=== PATIENT | female | born 1995 | race Caucasian/White ===

== ENCOUNTER 2018-10-07 13:00 | Inpatient (IN) ==
[2018-10-07 13:11] VITALS: BMI 46.3
[2018-10-07 13:43] LABS: BILIRUBIN,URINE NEGATIVE (NEGATIVE); BLOOD/HEMOGLOBIN,URINE NEGATIVE (NEGATIVE); GLUCOSE, URINE NEGATIVE (NEGATIVE); KETONES,URINE NEGATIVE (NEGATIVE); LEUKOCYTE ESTERASE ,URINE 1+ (NEGATIVE); NITRITES,URINE NEGATIVE (NEGATIVE); PROTEIN,URINE 1+ (NEGATIVE); UROBILINOGEN,URINE NORMAL (NORMAL)
[2018-10-07 13:48] LABS: AMNISURE ROM TEST THERE IS A RUPTURE (NO RUPTURE); APPEARANCE,URINE CLEAR (CLEAR); COLOR,URINE YELLOW (YELLOW)
[2018-10-07 13:50] LABS: BACTERIA,URINE TRACE /HPF (NEGATIVE); RBC,URINE 0-2 /HPF (NONE SEEN); SQUAMOUS EPITHELIAL CELL,UR MODERATE /HPF (NEGATIVE)
[2018-10-07] MEDS ORDERED: D5LR 1L W PITOCIN 10 UNITS/L 10 UNITS/1,000 ML BAG IV PRN (14:38)
[2018-10-07] MEDS ORDERED: NUBAIN INJ 200 MG VIAL MULTIDOSE IVP PRN (14:38)
[2018-10-07] MEDS ORDERED: D5 1/2 NS 1000 ML 1,000 ML IV SCH (15:00)
[2018-10-07 15:03] LABS: BASOPHILS # (AUTO) 0.1 X10^3/uL (0.0-0.1); BASOPHILS % (AUTO) 0.4 % (0.2-1.0); EOSINOPHILS # (AUTO) 0.2 x10^3/uL (0.0-0.2); EOSINOPHILS % (AUTO) 1.2 % (0.9-2.9); HEMATOCRIT 34.6 % (36.0-47.0); HEMOGLOBIN 11.4 g/dL (12.0-16.0); LYMPHOCYTES # (AUTO) 1.8 X10^3/uL (1.3-2.9); MEAN CORPUSCULAR HEMOGLOBIN 26.2 pg (27.0-34.0); MEAN CORPUSCULAR HGB CONC 32.9 g/dL (33.0-35.0); MEAN CORPUSCULAR VOLUME 79.7 fL (80.0-100.0); MEAN PLATELET VOLUME 9.7 fL (7.4-11.0); MONOCYTES # (AUTO) 0.8 x10^3/uL (0.3-0.8); MONOCYTES % (AUTO) 5.6 % (0.0-13.0); NEUTROPHILS # (AUTO) 11.2 x10^3/uL (2.2-4.8); NEUTROPHILS % (AUTO) 79.8 % (42.0-75.0); PLATELET COUNT 270 X10^3/uL (150.0-450.0); RED BLOOD COUNT 4.35 X10^6/uL (3.5-5.4); RED CELL DISTRIBUTION WIDTH 15.5 % (11.6-16.5)
[2018-10-07 15:11] LABS: BLOOD UREA NITROGEN 8 mg/dL (7-18); CALCIUM 8.4 mg/dL (8.5-10.1); CARBON DIOXIDE 21.8 mmol/L (21-32); CHLORIDE 103 mmol/L (98-107); CREATININE 0.58 mg/dL (0.55-1.02); SODIUM 139 mmol/L (136-145); eGFR NON BLACK RACES > 60 (>60)
[2018-10-07] MEDS ORDERED: NAROPIN EPIDURAL 0.2% + FENTANYL 90MCG 60 ML EPI ONE ×2 (16:09→21:59)
[2018-10-07] MEDS ORDERED: ADRENALINE CHL INJ ONE (16:09)
[2018-10-07] MEDS ORDERED: XYLOCAINE 1 % (PLAIN) ONE (16:09)
[2018-10-07] MEDS ORDERED: XYLOCAINE-MPF 1% ONE (16:09)
[2018-10-07] MEDS ORDERED: PITOCIN ONE (16:09)
[2018-10-07] MEDS ORDERED: LR 1000 ML IV 1,000 ML IV ONE (16:10)
[2018-10-07] MEDS ORDERED: FENTANYL INJ 100 mcg ONE (16:11)
[2018-10-07] MEDS ORDERED: REGLAN INJ 10 MG VIAL IVP PRN (17:58)
[2018-10-07] MEDS ORDERED: NS 1000 ML 1,000 ML ONE (18:52)
[2018-10-08] MEDS ORDERED: D5LR 1L W PITOCIN 10 UNITS/L 10 UNITS/1,000 ML BAG IV ONE (03:41)
[2018-10-08] MEDS ORDERED: NAROPIN EPIDURAL 0.2% + FENTANYL 90MCG 60 ML EPI ONE (03:41)
[2018-10-08] MEDS: PITOCIN IVP ONE ×2 (05:08→06:07)
[2018-10-08] MEDS: D5 1/2 NS 1L W PITOCIN 20 UNITS/L 20 UNITS/1,000 ML BAG IV ONE ×2 (05:08→06:07)
[2018-10-08] MEDS ORDERED: MOTRIN TAB 800 MG PO PRN (05:32)
[2018-10-08] MEDS ORDERED: D5 1/2 NS 1000 ML 1,000 ML with PITOCIN 20 UNITS IV SCH ×2 (06:00)
[2018-10-08] MEDS ORDERED: HYPERRHO S/D (or RHOGAM) IM PRN (06:15)
[2018-10-08] MEDS ORDERED: MILK OF MAGNESIA PO PRN (06:15)
[2018-10-08] MEDS ORDERED: DERMOPLAST SPRAY TOP PRN (06:15)
[2018-10-08] MEDS ORDERED: AMBIEN PO PRN (06:15)
[2018-10-08] MEDS: ZANTAC PO SCH ×2 (09:57→21:33)
[2018-10-08] MEDS: PRENATAL PLUS PO SCH (09:57)
[2018-10-09 05:22] LABS: HEMOGLOBIN 10.2 g/dL (12.0-16.0)
[2018-10-09] MEDS: ZANTAC PO SCH ×2 (09:22→20:57)
[2018-10-09] MEDS: PRENATAL PLUS PO SCH (09:22)
[2018-10-09] MEDS ORDERED: ADACEL or BOOSTRIX TDaP VACCINE IM ONE (21:34)
[2018-10-10] MEDS ORDERED: ADACEL or BOOSTRIX TDaP VACCINE IM ONE (05:13)
[2018-10-10] MEDS: PRENATAL PLUS PO SCH (08:37)
[2018-10-10] MEDS: ZANTAC PO SCH (08:38)
[2018-10-10 10:59] VITALS: BP 112/55
== END 2018-10-10 11:20 | disposition home or self-care (01) | DRG 806 ==
LOC: ER 13:00 → LD 14:39 → MED/SURG 10-08 06:53
PROVIDERS: ADMIT Specialist; ATTEND Obstetrics & Gynecology Obstetrics
DX: Z37.0 Single live birth; O75.89 Other specified complications of labor and delivery; O36.0930 Maternal care for other rhesus isoimmunization, third trimester, not applicable or unspecified; O71.82 Other specified trauma to perineum and vulva; Z3A.38 38 weeks gestation of pregnancy; O70.0 First degree perineal laceration during delivery
CPT/HCPCS: 36415; 59409; 80048; 81001; 84112; 85014; 85018; 85025; 86592; 86850; 86900; 86901; 90715; 99284; A4216; S0197; J0171; J2590; J2765; J3010; J7030; J7120; S5010

== ENCOUNTER 2023-06-29 07:30 | Inpatient (IN) ==
[2023-07-01] MEDS ORDERED: ANCEF VIAL 1 GRAM ONE (07:21)
[2023-07-01] MEDS ORDERED: NS 100 ML IV 100 ML ONE (07:22)
[2023-07-01] MEDS ORDERED: LR 1,000 ML IV 1,000 ML IV ONE (07:22)
[2023-07-01] MEDS ORDERED: D5 1/2 NS 1,000 ML 1,000 ML IV SCH (07:35)
[2023-07-01] MEDS ORDERED: ANCEF VIAL 1 GRAM IVP ONE (07:35)
[2023-07-01] MEDS ORDERED: DIPRIVAN VIAL 20 ML ONE (08:08)
[2023-07-01] MEDS ORDERED: REGLAN INJ 10 MG VIAL ONE (08:09)
[2023-07-01] MEDS ORDERED: PITOCIN ONE (08:09)
[2023-07-01] MEDS ORDERED: ZOFRAN INJ 4 MG VIAL ONE (08:09)
[2023-07-01] MEDS ORDERED: EPHEDRINE SULFATE INJ ONE (08:09)
[2023-07-01] MEDS ORDERED: PEPCID 20 MG VIAL ONE (08:09)
[2023-07-01] MEDS ORDERED: MARCAINE SPINAL ONE (08:21)
[2023-07-01] MEDS ORDERED: DILAUDID INJ ONE (08:21)
[2023-07-01] MEDS ORDERED: NS 1,000 ML IV 1,000 ML ONE (08:46)
[2023-07-01] MEDS ORDERED: D5 1/2 NS 1,000 mL + PITOCIN 20 UNITS/L IV 20 UNITS/1,000 ML BAG IV ONE (08:46)
[2023-07-01] MEDS ORDERED: BENADRYL INJ 50 MG VIAL IVP PRN ×2 (11:14→11:35)
[2023-07-01] MEDS ORDERED: BARHEMSYS INJ IVP PRN (11:14)
[2023-07-01] MEDS ORDERED: REGLAN INJ 10 MG VIAL IVP PRN ×2 (11:14→11:35)
[2023-07-01] MEDS ORDERED: ZOFRAN INJ 4 MG VIAL IVP PRN ×2 (11:14→11:35)
[2023-07-01] MEDS ORDERED: NARCAN INJ IVP PRN (11:35)
[2023-07-01] MEDS ORDERED: PERCOCET TAB 5/325 MG PO PRN (11:35)
[2023-07-01] MEDS ORDERED: HYPERRHO S/D (or RHOGAM) IM PRN (11:35)
[2023-07-01] MEDS ORDERED: ADACEL or BOOSTRIX TDaP VACCINE IM ONE (11:35)
[2023-07-01] MEDS ORDERED: D5 1/2 NS 1,000 ML 1,000 ML with PITOCIN 20 UNITS IV SCH ×2 (12:00)
[2023-07-01] MEDS ORDERED: PHENERGAN INJ 25 MG IM ONE (13:50)
[2023-07-01] MEDS: PHENERGAN INJ 25 MG IM PRN ×2 (14:12→18:31)
[2023-07-01] MEDS: TORADOL 30 MG VIAL IVP PRN ×2 (17:05→17:40)
[2023-07-02 04:59] LABS: HEMATOCRIT 24.8 % (36.0-47.0)
[2023-07-02 05:00] LABS: HEMOGLOBIN 8.2 g/dL (12.0-16.0)
[2023-07-02] MEDS: TORADOL 30 MG VIAL IVP PRN (05:41)
--- NOTE | 2023-07-02 07:12 | NOTE.PROBC ---
Progress Note OB-C/S - Subjective Data Subjective: No complaints, decreased lochia. Tolerating oral diet. No N/V. Ambulating well. Titus draining well. Pain under good control with toradol. - Objective Data Temperature: 98.5 F Pulse Rate: 94 Respiratory Rate: 18 Blood Pressure: 103/56 O2 Sat by Pulse Oximetry: 98 Result Diagrams: 07/02/23 04:30 Objective Data: CV= RRR no MRG Lungs=CTA Bilaterally Abd=(+) BS, soft, ND, slightly tender at umblicus level. Bandage removed. Incision clean/dry/intact, no erythema, no bleeding, no discharge. Dermabond/Stitches intact. Fundus firm/NT/ at 1 cm below umbilicus. Ext= No edema, NT, No Cords. Graduated Compression Stockings/Sequential Compression Devices Bilaterally. - Assessment Assessment: POD1 C section - Plan Plan: Remove titus, Encourage shower and wound care, Encourage ambulation, PO pain control, d/c IV pain meds, d/c IV fluids, Increase diet as tolerated. Iron supplementation at discharge. Glucose check at 6 wks pp, IUD at 6 wks pp, BF and bottle feeding. Possible discharge tomorrow.
[2023-07-02] MEDS ORDERED: PERCOCET TAB 5/325 MG PO PRN (07:42)
[2023-07-02] MEDS: PRENATAL PLUS PO SCH (08:30)
[2023-07-02] MEDS: COLACE CAP 100 MG PO SCH ×2 (08:30→20:24)
[2023-07-02] MEDS: BACTROBAN TOPICAL OINT TOP SCH ×2 (15:47→21:14)
[2023-07-02] MEDS ORDERED: FERROUS GLUCONATE PO ONE (15:48)
[2023-07-02] MEDS: FERROUS GLUCONATE PO SCH (17:36)
[2023-07-02] MEDS: MOTRIN TAB 800 MG PO PRN (20:25)
[2023-07-02] MEDS: MYLICON TAB 80 MG CHEW PO PRN (20:25)
[2023-07-03] MEDS: MYLICON TAB 80 MG CHEW PO PRN (05:44)
[2023-07-03] MEDS: MOTRIN TAB 800 MG PO PRN (05:51)
[2023-07-03] MEDS: BACTROBAN TOPICAL OINT TOP SCH (05:51)
[2023-07-03] MEDS: FERROUS GLUCONATE PO SCH (06:00)
[2023-07-03 06:54] VITALS: RESP 18
[2023-07-03] MEDS: COLACE CAP 100 MG PO SCH (08:19)
[2023-07-03] MEDS: PRENATAL PLUS PO SCH (08:46)
[2023-07-03 08:51] VITALS: BP 109/59; PULSE 100; TEMP 98.6; O2SAT 98
== END 2023-07-03 12:00 | disposition home or self-care (01) | DRG 787 ==
LOC: LD 07-01 06:51 → MED/SURG 07-01 11:34
PROVIDERS: ADMIT Specialist; ATTEND Specialist
DX: Z3A.39 39 weeks gestation of pregnancy; O36.63X0 Maternal care for excessive fetal growth, third trimester, not applicable or unspecified; O24.410 Gestational diabetes mellitus in pregnancy, diet controlled; Z37.0 Single live birth; O36.0930 Maternal care for other rhesus isoimmunization, third trimester, not applicable or unspecified